=== PATIENT | male | born 1940 | race Hispanic/Latino ===

== ENCOUNTER 2016-10-28 09:41 | Outpatient (CLI) | payer MEDICARE, OTHER ==
--- NOTE | 2016-10-28 10:31 | XRay Report ---
Right shoulder 3 views. Findings: There is no evidence of fracture or dislocation. 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 There is calcification within the supraspinatus tendon probably related to tendinitis. Impression: No acute findings.
--- NOTE | 2016-10-28 10:35 | XRay Report ---
Left hip: The bones are intact and the joint is aligned. The articular margins are smooth and the joint space is preserved. The bones are well-mineralized. Of incidental note are degenerative changes involving the lower 3 vertebral bodies and discs. Impression: No acute findings. Degenerative lumbar changes. Lumbar spine series: Large articular spurs are present from L2-L5 anteriorly with small spurs posteriorly at L3-4. The L4 body is anteriorly subluxed by approximately 6 mm. No spondylitis is identified. Minimal L2 retrolisthesis. The L3-4 and L4-5 inner spaces are markedly narrowed. Degenerative narrowing is identified involving the lower to the apophyseal joints bilaterally. Impressions: 1. Multilevel degenerative spondylosis. 2. L4 spondylo-listhesis. No spondylo-lysis. 3. Minimal L2 retrolisthesis. 4. Severely narrowed L3-4 and L4-5 discs.
== END 2016-10-28 09:42 | disposition home or self-care (01) ==
LOC: SPVIMAG 09:41
PROVIDERS: ATTEND Internal Medicine
DX: M47.896 Other spondylosis, lumbar region (principal); M61.48 Other calcification of muscle, other site; M25.552 Pain in left hip
CPT/HCPCS: 72110